=== PATIENT | female | born 1955 | race Caucasian/White ===

== ENCOUNTER → 2020-08-03 | Outpatient (CLI) | payer MEDICARE | END | disposition home or self-care (01) | LOC: CFH 08:11 | PROVIDERS: ATTEND Physician Assistant | DX: Z12.31 Encounter for screening mammogram for malignant neoplasm of breast (principal); Z13.820 Encounter for screening for osteoporosis; N63.21 Unspecified lump in the left breast, upper outer quadrant; N95.9 Unspecified menopausal and perimenopausal disorder | CPT/HCPCS: 77063; 77067; 77080 ==